=== PATIENT | male | born 1960 | race Caucasian/White ===

== ENCOUNTER 2016-10-08 08:34 | Emergency (ER) | payer OTHER ==
[2016-10-08 08:38] VITALS: RESP 16; TEMP 98.1; O2SAT 96
--- NOTE | 2016-10-08 08:48 | EDPHY ---
H & P Time Seen by Provider: 10/08/16 08:47 HPI/ROS: Chief complaint. Abdominal pain HPI. 56-year-old male upper abdominal pain for 2 weeks. Essentially he only has at night. He is well in the morning and during the day and then beginning in the evening around 6:00 p.m. he starts to have epigastric sharp and burning type pain. No radiation. He had viral syndrome 3-4 weeks ago and then after that this started. He saw his PCP 2 weeks ago diagnosis gastritis and encouraged him to increase his Prilosec. He has a history of GERD. Decreased appetite. He has had an endoscopy which shows "loose" lower esophageal sphincter. He denies chest discomfort or trouble breathing. No change with exertion or deep breathing. ROS Constitutional. no fever/chills, no weakness Eyes. no problems with vision ENT. no sore throat, no nasal drainage Cardiovascular. no chest pain Respiratory. no shortness of breath, no cough Abdominal. Epigastric pain . no problems urinating MS. no calf pain/swelling, no neck/back pain, no joint pain Skin. no rash Lymph. no swollen glands Neuro. no headache, no dizziness, no difficulty walking or with speech Past Medical/Surgical History: GERD and hypothyroid Social History: , nonsmoker, no alcohol for a month Smoking Status: Never smoked Physical Exam: General Appearance: Alert well-developed male mild distress vital signs are stable Eyes: Pupils equal and round no pallor or injection. ENT, Mouth: Mucous membranes are moist. Respiratory: There are no retractions, lungs are clear to auscultation. Cardiovascular: Regular rate and rhythm. Gastrointestinal: Abdomen is soft with tenderness in the epigastrium. No masses. No organomegaly Neurological: Awake and alert, sensory and motor exams grossly normal. Skin: Warm and dry, no rashes. Musculoskeletal: Neck is supple nontender. Extremities symmetrical, full range of motion. Psychiatric: Patient is oriented X 3, there is no agitation. Constitutional: Initial Vital Signs Temperature (C) 36.7 C 10/08/16 08:34 Heart Rate 72 10/08/16 08:34 Respiratory Rate 16 10/08/16 08:34 Blood Pressure 145/90 H 10/08/16 08:34 O2 Sat (%) 96 10/08/16 08:34 O2 Delivery Mode Room Air Allergies/Adverse Reactions: No Known Allergies Allergy (Unverified 10/08/16 08:38) Home Medications: Medication Instructions Recorded Omeprazole [Prilosec 20 mg] 20 mg PO DAILY 10/08/16 Pantoprazole Sodium [Protonix 40mg 40 mg PO BID #14 tab 10/08/16 (*)] Porcine Thyroid 10/08/16 Medical Decision Making - Diagnostics EKG Interpretation: EKG interpreted by me shows normal sinus rhythm normal interval. Left axis deviation. LVH by voltage. No significant ST elevation or depression. No arrhythmia. The rate is 58 Procedures: IV normal saline. Nexium intravenously. GI cocktail ED Course/Re-evaluation: Re-evaluation 10:05 a.m.. Patient got relief from the GI cocktail. The patient and I discussed the lab results, treatment plan including criteria for return and importance of follow-up and further evaluation. He expresses understanding and agreement Differential Diagnosis: I considered acute coronary syndrome, pancreatitis, GERD, peptic ulcer disease - Data Points Laboratory Results: Laboratory Results 10/08/16 08:48 10/08/16 08:48 10/08/16 08:48 WBC 6.98 10^3/uL (3.80-9.50) RBC 4.67 10^6/uL (4.40-6.38) Hgb 14.7 g/dL (13.7-17.5) Hct 41.4 % (40.0-51.0) MCV 88.7 fL (81.5-99.8) MCH 31.5 pg (27.9-34.1) MCHC 35.5 g/dL (32.4-36.7) RDW 12.1 % (11.5-15.2) Plt Count 355 10^3/uL (150-400) MPV 9.2 fL (8.7-11.7) Neut % (Auto) 58.6 % (39.3-74.2) Lymph % (Auto) 30.8 % (15.0-45.0) Cameron % (Auto) 8.0 % (4.5-13.0) Eos % (Auto) 2.0 % (0.6-7.6) Baso % (Auto) 0.3 % (0.3-1.7) Nucleat RBC Rel Count 0.0 % (0.0-0.2) Absolute Neuts (auto) 4.09 10^3/uL (1.70-6.50) Absolute Lymphs (auto) 2.15 10^3/uL (1.00-3.00) Absolute Monos (auto) 0.56 10^3/uL (0.30-0.80) Absolute Eos (auto) 0.14 10^3/uL (0.03-0.40) Absolute Basos (auto) 0.02 10^3/uL (0.02-0.10) Absolute Nucleated RBC 0.00 10^3/uL (0-0.01) Immature Gran % 0.3 % (0.0-1.1) Immature Gran # 0.02 10^3/uL (0.00-0.10) Sodium 145 H mEq/L (134-144) Potassium 3.8 mEq/L (3.5-5.2) Chloride 103 mEq/L (97-110) Carbon Dioxide 26 mEq/l (22-31) Anion Gap 16 mEq/L (8-16) BUN 13 mg/dL (7-23) Creatinine 1.2 mg/dL (0.7-1.3) Estimated GFR > 60 Glucose 95 mg/dL (70-100) Calcium 9.5 mg/dL (8.5-10.4) Troponin I < 0.012 ng/mL (0-0.034) Lipase 232.0 IU/L (23-300) Medications Given: Discontinued Medications Sodium Chloride (Ns) 1,000 mls @ 0 mls/hr IV ONCE ONE PRN Reason: Wide Open Stop: 10/08/16 08:50 Last Admin: 10/08/16 08:53 Dose: 1,000 mls Miscellaneous Medication (Gi Cocktail) 55 ml PO EDNOW ONE Stop: 10/08/16 08:50 Last Admin: 10/08/16 09:08 Dose: 55 ml Departure - Departure Disposition: Home, Routine, Self-Care Clinical Impression: Abdominal pain Qualifiers: Abdominal location: epigastric Qualifier Code: (R10.13) Epigastric pain GERD (gastroesophageal reflux disease) Qualifiers: Esophagitis presence: esophagitis presence not specified Qualifier Code: (K21.9 ) Gastro-esophageal reflux disease without esophagitis Condition: Good Instructions: Gastroesophageal Reflux Disease (ED) Additional Instructions: Substitute Protonix for Prilosec. Maalox or liquid antacid 2 tbsp every 6 hours and at bedtime. Return for worsening pain, fever, vomiting. Call Dr. Smith tomorrow to make follow-up appointment. Re-evaluation by Dr. Gallegos in the next 2-3 days while waiting GI appointment Referrals: Celestine Gallegos MD [Primary Care Provider] - 2-3 days without fail Riccardo Smith MD, FACG [Medical Doctor] - 2-3 days, call for appt. Prescriptions: Pantoprazole Sodium [Protonix 40mg (*)] 40 mg PO BID #14 tab
[2016-10-08] MEDS ORDERED: MAALOX/LIDO/HYOSC GI COCKTAIL 55 ML BOTTLE PO ONE (08:49)
[2016-10-08] MEDS ORDERED: NS 1,000 ML IV ONE (08:49)
--- NOTE | 2016-10-08 08:52 | CPEKG ---
Heart Rate: 58 RR Interval: 1034 P-R Interval: 180 QRSD Interval: 74 QT Interval: 452 QTC Interval: 445 P [place]: 64 QRS [place]: 10 T Wave [place]: 49 EKG Severity - ABNORMAL ECG - EKG Impression: SINUS RHYTHM EKG Impression: LEFT VENTRICULAR HYPERTROPHY Electronically Signed By: Juan M Vivas 08-Oct-2016 14:51:52
[2016-10-08 08:59] LABS: % IMMATURE GRANULYOCYTES 0.3 % (0.0-1.1); ABSOLUTE IMMATURE GRANULOCYTES 0.02 10^3/uL (0.00-0.10); ADD DIFF? NO; ADD MORPH? NO; ADD SCAN? NO; ATYPICAL LYMPHOCYTE FLAG 20 (0-99); FRAGMENT RBC FLAG 0 (0-99); HEMATOCRIT 41.4 % (40.0-51.0); HEMOGLOBIN 14.7 g/dL (13.7-17.5); LEFT SHIFT FLG 0 (0-99); LIPEMIA HEMOLYSIS FLAG 90 (0-99); MEAN CELL HEMOGLOBIN 31.5 pg (27.9-34.1); MEAN CELL HEMOGLOBIN CONCENTR. 35.5 g/dL (32.4-36.7); MEAN CELL VOLUME 88.7 fL (81.5-99.8); MEAN PLATELET VOLUME 9.2 fL (8.7-11.7); PLATELET CLUMPS FLAG 0 (0-99); PLATELET COUNT 355 10^3/uL (150-400); RED BLOOD CELL COUNT 4.67 10^6/uL (4.40-6.38); RED CELL DISTRIBUTION WIDTH 12.1 % (11.5-15.2)
[2016-10-08] MEDS ORDERED: PANTOPRAZOLE SODIUM 80 MG in NS 100 ML IV ONE (09:10)
[2016-10-08 09:21] LABS: ANION GAP 16 mEq/L (8-16); CALCIUM 9.5 mg/dL (8.5-10.4); CARBON DIOXIDE 26 mEq/l (22-31); CHLORIDE 103 mEq/L (97-110); CREATININE 1.2 mg/dL (0.7-1.3); GLOMERULAR FILTRATION RATE > 60; GLUCOSE 95 mg/dL (70-100); POTASSIUM 3.8 mEq/L (3.5-5.2); SODIUM 145 mEq/L (134-144)
[2016-10-08 09:32] LABS: TROPONIN I < 0.012 ng/mL (0-0.034)
[2016-10-08 10:25] VITALS: BP 130/85
[2016-10-08 10:26] VITALS: PULSE 60
== END 2016-10-08 10:26 | disposition home or self-care (01) ==
DX: K21.9 Gastro-esophageal reflux disease without esophagitis (principal)
CPT/HCPCS: 96365

== ENCOUNTER → 2017-03-08 | Outpatient (CLI) | payer OTHER ==
[~2017-03-08] MED LIST: IOPAMIDOL (ISOVUE-300) 100 ML BTL ONE
== END ==
LOC: FIMAGING 07:45
PROVIDERS: ATTEND Allergy & Immunology Allergy
DX: M43.16 Spondylolisthesis, lumbar region (principal); R50.9 Fever, unspecified
CPT/HCPCS: Q9967

== ENCOUNTER → 2017-03-23 | Outpatient (CLI) | payer OTHER | LOC: FIMAGING 11:26 | PROVIDERS: ATTEND Allergy & Immunology Allergy | DX: R07.89 Other chest pain (principal) ==

== ENCOUNTER 2018-03-09 15:30 | Observation (INO) | payer OTHER ==
--- NOTE | 2018-03-09 15:39 | CPEKG ---
Heart Rate: 63 RR Interval: 952 P-R Interval: 196 QRSD Interval: 78 QT Interval: 436 QTC Interval: 447 P [place]: 43 QRS [place]: 2 T Wave [place]: 38 EKG Severity - BORDERLINE ECG - EKG Impression: SINUS RHYTHM EKG Impression: PROBABLE LEFT ATRIAL ABNORMALITY Electronically Signed By: Wendy Mustafa 09-Mar-2018 17:20:32
--- NOTE | 2018-03-09 15:40 | EDPHY ---
HPI/HX/ROS/PE/MDM Narrative: CHIEF COMPLAINT: Chest pain HISTORY OF PRESENT ILLNESS: The patient is a 57 y/o male with a history of GERD complaining of gradual onset , sharp, upper chest pain radiating to his left armpit that began around 13:00, 3 hours ago, after doing 3 hours of yard work. His GERD normally presents in his lower chest and there is no radiating pain. Last night he drank a bottle of wine and today he did more physical activity than normal including a long bike ride and yard work. After the pain began, he went inside and drank some fluids with electrolytes which mildly improved his symptoms. His chest pain eventually subsided, but the armpit pain lingered. While driving to the emergency department he felt like there was an abnormal feeling in his chest. In addition to his acute symptoms today, he has felt more fatigued while running for the last several months. Denies history of DVT or PE, hypertension, swelling in legs , taking aspirin, illicit drug use, familial history of cardiac problems. No fever, chills, shortness of breath, palpitations, vomiting, diarrhea, urinary complaints, headache, lightheadedness. REVIEW OF SYSTEMS: Aside from elements discussed in the HPI, a comprehensive 10-point review of systems was reviewed and is negative. PAST MEDICAL HISTORY: GERD, hyperthyroid, C. Diff SOCIAL HISTORY: Friend at bedside, lives in [facility] VITAL SIGNS: Reviewed by me GENERAL: Nervous, well-developed, well-nourished, resting comfortably in no respiratory distress. HEENT: Atraumatic. Eyes: No icterus, no injection. Mouth: dry mucous membranes. No erythema or lesions. Neck: supple with no adenopathy. LUNGS: Clear to auscultation bilaterally, no wheezes, rhonchi or rales. CARDIAC: Regular rate and rhythm, no rubs, murmurs or gallops. ABDOMEN: Soft, nontender, nondistended, bowel sounds normal. BACK: No CVA tenderness. EXTREMITIES: No trauma. No edema. Range of motion is normal throughout. NEURO: Alert and oriented, grossly nonfocal. SKIN: Warm and dry, no rash. PSYCHIATRIC: Normal mentation, no agitation. Portions of this note were transcribed by a medical insurance collector. I personally performed a history, physical exam, medical decision making, and confirmed accuracy of information the transcribed note. ED Course: The patient is a 57 y/o male with a history of GERD complaining of gradual onset , sharp, upper chest pain radiating to his left armpit that began around 13:00, 3 hours ago, after doing 3 hours of yard work. On exam he is nervous and has dry mucous membranes. EKG, chest x-ray, and labs ordered; 500mL IV NS and 324mg PO Aspirin administered. 1537: 12-LEAD EKG: Please see the full report in [facility]. My interpretation: Sinus rhythm with a rate of 63, probable left atrial abnormality 1622: Patient's troponin is 0.01 1700: I interpreted patient's chest x-ray as normal; radiologist reading still pending. 1711: Reassessed patient and discussed laboratory and imaging findings. I have discussed plan for admission which he is comfortable with. 1715: Consulted with hospitalist service, Dr. Nance accepts admission of this patient. MDM: After history and physical examination, the differential for chest pain was considered, including but not limited to, myocardial ischemia, acute coronary syndrome, pulmonary embolus, chest wall pain, pleural inflammation and pulmonary infectious causes. - Data Points Imaging Results: CXR: Impression: Normal chest. Dictated By: Tom Ga MD Imaging: I viewed and interpreted images myself Laboratory Results: Laboratory Results 03/09/18 15:41 03/09/18 15:41 Medications Given: Discontinued Medications Aspirin (Aspirin) 324 mg PO EDNOW ONE Stop: 03/09/18 16:30 Last Admin: 03/09/18 16:29 Dose: 324 mg Aspirin Buffered (Aspirin Ec) 81 mg PO DAILY NONA Stop: 09/06/18 08:59 Last Admin: 03/10/18 08:35 Dose: 81 mg Sodium Chloride (Ns) 500 mls @ 1,000 mls/hr IV EDNOW ONE PRN Reason: Protocol Stop: 03/09/18 16:44 Last Admin: 03/09/18 16:28 Dose: 500 mls Miscellaneous Medication (Thyroid,Pork [Operations Team Leader Thyroid]) 120 mg PO DAILY NONA Stop: 09/06/18 08:59 Last Admin: 03/10/18 08:35 Dose: 120 mg Vitamin B Complex (Vitamin B Complex) 1 ea PO DAILY NONA Stop: 09/06/18 08:59 Last Admin: 03/10/18 08:35 Dose: 1 ea Zolpidem Tartrate (Ambien) 5 mg PO HS NONA Stop: 09/05/18 20:59 Last Admin: 03/10/18 01:01 Dose: Not Given Point of Care Test Results: Chemistry 03/09/18 15:45 POC Troponin I 0.01 ng/mL ng/mL (0.00-0.08) General Time Seen by Provider: 03/09/18 15:39 Initial Vital Signs: Initial Vital Signs Temperature (C) 36.6 C 03/09/18 15:32 Heart Rate 62 03/09/18 15:32 Respiratory Rate 18 03/09/18 15:32 Blood Pressure 128/97 H 03/09/18 15:32 O2 Sat (%) 97 03/09/18 15:32 O2 Delivery Mode Room Air Allergies/Adverse Reactions: No Known Allergies Allergy (Verified 03/09/18 15:31) Home Medications: Medication Instructions Recorded Thyroid,Pork [Operations Team Leader Thyroid] 120 mg PO DAILY 10/08/16 Herbals/Supplements -Info Only 1 ea PO DAILY 03/09/18 Multivitamins [Multivitamin (*)] 1 each PO DAILY 03/09/18 Vitamin B Complex [Vitamin B 1 each PO DAILY 03/09/18 Complex (OTC)] Zolpidem Tartrate [Ambien 5MG (*)] 5 mg PO HS 03/09/18 Departure - Departure Disposition: [facility] Acute Clinical Impression: Chest pain Qualifiers: Chest pain type: other chest pain Qualified Code(s): R07.89 - Other chest pain Hypertension Qualifiers: Hypertension type: unspecified Qualified Code(s): I10 - Essential (primary) hypertension Condition: Fair Report Scribed for: Wendy Mustafa Report Scribed by: Diana Rudd Date of Report: 03/09/18 Time of Report: 15:40
[2018-03-09 16:04] LABS: PLATELET COUNT 209 10^3/uL (150-400)
[2018-03-09] MEDS ORDERED: NS 500 ML IV ONE (16:15)
[2018-03-09] MEDS ORDERED: ASPIRIN 81 MG CHEWABLE TAB ONE (16:19)
[2018-03-09] MEDS ORDERED: ASPIRIN 81 MG CHEWABLE TAB PO ONE (16:29)
[2018-03-09] MEDS ORDERED: ONDANSETRON DISINTEGRATING 4 MG TAB PO PRN (17:30)
[2018-03-09] MEDS ORDERED: ACETAMINOPHEN 325 MG TAB PO PRN (17:30)
[2018-03-09] MEDS ORDERED: ONDANSETRON 4 MG/2 ML VIAL IVP PRN (17:30)
--- NOTE | 2018-03-09 18:58 | GHP ---
[f rep st] HISTORY AND PHYSICAL DATE OF ADMISSION: 03/09/2018 CHIEF COMPLAINT: Chest pain. HISTORY OF PRESENT ILLNESS: This is a 57-year-old man who presents with chest pain. It started arou nd 1 o'clock this afternoon. He had gone for a bike ride this morning, was working in the yard. It developed while he was working. It was left-sided he described as pressure versus stabbing pain, rad iating to his left arm. If he lay down, then it went away. He has noted that over the past few kristan hs his exercise tolerance has been slightly lower. He had a stress test about 5 years ago, and he sa ys that there was nothing identified. He does not have any history of cardiovascular disease. He does have a history of GERD and has had chest pain from this. However, he describes the pain that he had today as quite different and located higher. PAST MEDICAL/SURGICAL HISTORY: 1. GERD. 2. Hypothyroid. 3. Peripheral neuropathy. MEDICATIONS: Please see medication reconciliation. ALLERGIES: No known drug allergies. FAMILY HISTORY: He had a cousin who had a CABG in his 40s and his mother had "holes" in her heart. No history of early family heart disease. SOCIAL HISTORY: He does drink alcohol. He does not smoke. REVIEW OF SYSTEMS: A 10-point review of systems is conducted and is negative except per HPI. PHYSICAL EXAMINATION: VITAL SIGNS: Blood pressure is 140/87, heart rate 64, respiration rate 12, sa turating 96% on room air, temperature 36.6. GENERAL: The patient is a pleasant man who is resting c omfortably in no acute distress. HEENT: Shows him to be normocephalic, atraumatic. CARDIOVASCULAR: Regular rate and rhythm. No murmurs, rubs, or gallops. No elevated JVD. No lower extremity edema . PULMONARY: Shows lungs clear to auscultation bilaterally. ABDOMEN: Soft, nontender, nondistende d. SKIN: No rash. : No [place]. NEUROLOGIC: Shows him to be alert and oriented x3. He is movin g all extremities. PSYCHIATRIC: Shows normal mood and affect. LABORATORIES: CBC is normal. Basic metabolic panel is normal. Troponin is negative. DATA: 1. Discussed with Dr. Mustafa. Will admit to the PCU. 2. I personally reviewed and interpreted his EKG as well as chest x-ray. EKG shows sinus rhythm. T here is nothing acutely ischemic. Chest x-ray shows a normal-sized heart, normal-sized mediastinum. IMPRESSION/PLAN: 1. Chest pain: Will trend his troponins. If these are negative, will perform stress testing in the morning. I have a very low suspicion for PE given his lack of hypoxia and borderline bradycardia. 2. Hypothyroid: Continue his thyroid replacement. /[id number]/MODL
[2018-03-09] MEDS ORDERED: ZOLPIDEM TARTRATE 5 MG TAB PO SCH (21:00)
[2018-03-10] MEDS ORDERED: THYROID PORK 120 MG PO SCH (09:00)
[2018-03-10] MEDS ORDERED: VITAMIN B COMPLEX 1 EA CAP/TAB PO SCH (09:00)
[2018-03-10] MEDS ORDERED: ASPIRIN EC 81 MG TAB PO SCH (09:00)
[2018-03-10 11:27] VITALS: BP 98/72
--- NOTE | 2018-03-10 12:06 | HOSPPROG ---
Hospitalist Progress Note Assessment/Plan: 67 yo M w cp. neg stress home today see dc summary Subjective: neg stress. no events tele Objective: Vital Signs Temp Pulse Resp BP Pulse Ox 36.7 C 61 16 98/72 L 96 03/10/18 11:26 03/10/18 11:26 03/10/18 11:26 03/10/18 11:26 03/10/18 11:26 03/09/18 03/10/18 03/11/18 05:59 05:59 05:59 Intake Total 850 Balance 850 - Physical Exam Constitutional: no apparent distress, appears nourished Eyes: PERRL, anicteric sclera Ears, Nose, Mouth, Throat: moist mucous membranes, hearing normal Cardiovascular: regular rate and rhythym, no murmur, rub, or gallop, No systolic murmur Respiratory: no respiratory distress, no rales or rhonchi Gastrointestinal: normoactive bowel sounds, soft, non-tender abdomen Genitourinary: no bladder fullness, No miller in urethra Skin: warm, normal color Musculoskeletal: full muscle strength Neurologic: AAOx3 ICD10 Worksheet Patient Problems: Problems Problem Status Onset Chest pain Acute Hypertension Acute
--- NOTE | 2018-03-10 12:36 | GDS ---
[f rep st] DISCHARGE SUMMARY DISCHARGE DIAGNOSIS: Chest pain. HOSPITAL COURSE: Please see admission history and physical by Dr. Rui Nance. Patient presented wi th chest pain radiated to his left arm. He had had a busy day, including some yard work where he was using an electronic hedge tremor held out at length with his nondominant left hand. He had chest pa in radiating to his left arm. He had negative troponins and nonischemic EKG. He went 12 minutes 20 seconds on the Garry protocol with no ischemic changes, and he is discharged home. This is considere d a negative stress test. /[id number]/MODL
--- NOTE | 2018-03-10 14:57 | ASDISCHSUM ---
Discharge Information Plan Status:Home with No Needs Medically Cleared to Leave:03/10/2018 Discharge Date:03/10/2018 01:00 PM CM D/C Disposition:Home, Routine, Self-Care ADT D/C Disposition:Home, Routine, Self-Care Projected Discharge Date:03/10/2018 01:00 PM Transportation at D/C:None or Unknown Discharge Delay Reason: Follow-Up Date:03/10/2018 01:00 PM Discharge Slot: Final Diagnosis: Placement Information Patient Contact Information Contact Name:MARIA ESTHER Relationship:Friend Address:[address] [place] [address] [place] Alternate Phone: State/Zip Code:[place] [address] Email: Financial Information Financial Class:[employer] Primary Plan Desc:[facility] Primary Plan Number:[id number] Secondary Plan Desc: Secondary Plan Number: Assessment Information LACE LACE Length of stay for Answers: Less than 1 day current admission Acuity / Level of Answers: No Care: Did the patient have an inpatient admission? Comorbidities - select Answers: Other Notes: GERD, peripheral all that apply neuropathy # of Emergency department Answers: 1-2 visits in the last 6 months Score: 2 Date Signed: 03/10/2018 02:54 PM Electronically Signed By:Brie Naidu RN Case Management Discharge Plan Note Case Management Discharge Discharge Order Complete? Answers: Yes Patient to Obtain Answers: Independently Medications Discharge Comments Notes: 03/10/2018 Case Management Note Discussed pt during rounds this morning. Pt admitted for chest pain and subsequent workup. There are no case management d/c needs identified d/t pt age, activity levels prior to admission and family support. Pt discharged independent with follow up as directed. Date Signed: 03/10/2018 02:56 PM Electronically Signed By:Brie Naidu RN Intervention Information
== END 2018-03-10 13:00 | disposition home or self-care (01) ==
LOC: F2W 18:40
PROVIDERS: ADMIT Student in an Organized Health Care Education/Training Program; ATTEND Internal Medicine
DX: R07.9 Chest pain, unspecified (principal); E86.9 Volume depletion, unspecified; E03.9 Hypothyroidism, unspecified; I10 Essential (primary) hypertension; K21.9 Gastro-esophageal reflux disease without esophagitis; G62.9 Polyneuropathy, unspecified
CPT/HCPCS: 71046; 93005; 93017; G0378; 84484-PO

== ENCOUNTER 2019-03-22 12:40 | Emergency (ER) | payer OTHER | END 2019-03-22 15:17 | disposition home or self-care (01) ==